=== PATIENT | female | born 1960 | race Caucasian/White ===

== ENCOUNTER 2020-04-02 16:51 | Outpatient (REF) | payer BC, SELFPAY | END 2020-04-02 17:11 | LOC: NCHCN 16:51 | PROVIDERS: Visit Provider Physician Assistant Medical | DX: R31.9 Hematuria, unspecified (principal) | CPT/HCPCS: 87077; 87086; 87186 ==

== ENCOUNTER 2020-04-19 12:09 | Outpatient (REF) | payer BC, SELFPAY ==
[2020-04-19 20:26] LABS: Anion Gap 11.2 mmol/L (3-11); BUN 18 mg/dL (7-18); CO2 24.8 mmol/L (21.0-32.0); Calcium 8.9 mg/dL (8.5-10.1); Calculated LDL 106 mg/dL (<100); Chloride 105 mmol/L (98-107); Cholesterol 187 mg/dL (<200); Glucose 104 mg/dL (74-106); HDL Cholesterol 55 mg/dL (40-60); Potassium 4.3 mmol/L (3.5-5.1); Sodium 141 mmol/L (136-145); TSH 2.23 uIU/mL (0.36-3.74); Triglyceride 133 mg/dL (<150); Vitamin B12 748 pg/mL (193-986)
== END 2020-04-19 12:29 ==
LOC: NCHCN 12:09
PROVIDERS: Visit Provider Nurse Practitioner Family
DX: Z00.00 Encounter for general adult medical examination without abnormal findings (principal); Z13.220 Encounter for screening for lipoid disorders; Z13.228 Encounter for screening for other metabolic disorders; Z13.29 Encounter for screening for other suspected endocrine disorder
CPT/HCPCS: 80048; 80061; 82607; 84443

== ENCOUNTER 2020-04-29 00:24 | Outpatient (CLI) | payer BC, SELFPAY ==
--- NOTE | 2020-04-29 09:00 | DI.CTLCSR_ITS ---
EXAM: CT CHEST LUNG CANCER SCREEN CLINICAL HISTORY: The patient reportedly has a History of Smoking 30 pack years and presently smokes or has quit the past 15 years. TECHNIQUE: Imaging Protocol: Axial computed tomography images with coronal and sagittal reformatted images were created and reviewed. Low-dose screening protocol. COMPARISON: No exams were available for comparison FINDINGS: Tracheobronchial tree: Patent where visualized. Mediastinum and Raven: No dominant adenopathy or fluid collection. Pulmonary parenchyma: No consolidation or dominant measurable mass. No significant emphysematous leigh ges or interstitial changes. Lung Nodules: None. Pleura: No effusion or pneumothorax. Heart: The heart is not dilated. coronary artery calcifications are seen. Aorta: Thoracic aorta non-dilated.Minimal calcification Upper abdomen: Unremarkable. Bones: Within normal limits. Soft Tissues: Degenerative disc changes in the spine IMPRESSION: Normal low dose CT lung screening Lung RADS Cat 1 - Negative: No nodules and definitely benign nodules Lung-RADS 1.0 CATEGORIES: Category 0 - Prior chest CT exam(s) being located for comparison. Category 1 - Annual screening in 12 months. No nodules or definitely benign nodules. Category 2 - Annual screening in 12 months. Benign appearance. Nodules with low likelihood of becomin g active cancer. Category 3 - 6-month follow-up. Probably benign. Short-term follow-up suggested. Nodules with low lik elihood of becoming active cancer. Category 4A - 3-month follow-up and CT/PET if >8 mm in size. Suspicious finding. Findings which requi re additional testing. Category 4B - Findings which require additional testing and tissue sampling. Suspicious finding. C Added to Any of the Above - History of prior lung cancer screening. S Added to Any of the Above - Significant unexpected other finding. RADIATION DOSE DELIVERED: 88.06mGy.cm Total DLP DATA REPOSITORY: All CT scans at this facility are submitted to the National Radiology Data Registry (NRDR) Dose Index Registry (DIR) with the [employer] (ACR). RADIATION OPTIMIZATION: All CT scans at this facility use at least one of these dose optimization te chniques: automated exposure control; mA and/or kV adjustment per patient size (includes targeted exa ms where dose is matched to clinical indication); or iterative reconstruction.
== END 2020-04-29 00:44 ==
PROVIDERS: Visit Provider Nurse Practitioner Family
DX: Z12.2 Encounter for screening for malignant neoplasm of respiratory organs (principal); Z87.891 Personal history of nicotine dependence
CPT/HCPCS: G0297

== ENCOUNTER 2020-12-06 15:26 | Outpatient (REF) | payer BC, SELFPAY | END 2020-12-06 15:27 | disposition home or self-care (01) | LOC: NCHCN 15:26 | PROVIDERS: Visit Provider Nurse Practitioner Family | DX: R30.0 Dysuria (principal) | CPT/HCPCS: 87086 ==

== ENCOUNTER 2021-04-08 16:19 | Outpatient (REF) | payer BC, SELFPAY ==
[2021-04-08 14:13] LABS: Anion Gap 8.1 mmol/L (3-11); BUN 17 mg/dL (7-18); CO2 28.9 mmol/L (21.0-32.0); CREATININE 0.6 mg/dL (0.55-1.02); Calcium 9.2 mg/dL (8.5-10.1); Calculated LDL 118 mg/dL (<100); Chloride 105 mmol/L (98-107); Cholesterol 208 mg/dL (<200); Glucose 113 mg/dL (74-106); HDL Cholesterol 53 mg/dL (40-60); Potassium 4.8 mmol/L (3.5-5.1); Sodium 142 mmol/L (136-145); Triglyceride 185 mg/dL (<150)
== END 2021-04-08 16:20 | disposition home or self-care (01) ==
LOC: NCHCN 16:19
PROVIDERS: Visit Provider Nurse Practitioner Family
DX: I10 Essential (primary) hypertension (principal); Z00.00 Encounter for general adult medical examination without abnormal findings
CPT/HCPCS: 80048; 80061

== ENCOUNTER 2021-06-28 01:55 | Emergency (ER) | payer BC, SELFPAY ==
[2021-06-28 02:00] VITALS: BP 145/101; PULSE 76; RESP 18; TEMP 36.5; O2SAT 97
--- NOTE | 2021-06-28 02:00 | DI.CT_ITS ---
Exam(s) CT ABDOMEN PELVIS W EXAM: CT ABDOMEN PELVIS W CLINICAL HISTORY: r and l lower quad pain, hx diverticulitis. TECHNIQUE: Imaging Protocol: Axial computed tomography images with coronal and sagittal reformatted images were created and reviewed CONTRAST MATERIAL: Intravenous: Omnipaque 350 Contrast volume:100 ml Oral: yes / no COMPARISON: No exams were available for comparison FINDINGS: ABDOMEN: Lung Bases: Normal where visualized. Liver: Enlarged. Fatty infiltration. No measurable mass. Gallbladder and biliary tract: Cholecystectomy. No radiodense calculus or dilation. Pancreas: Normal density, no abnormal calcifications or inflammatory process. Spleen: Normal. Kidneys: Normal size, contour and axis. No radiodense stones or obstructive uropathy. No masses seen. Adrenal glands: No masses seen. Abdominal Aorta: Abdominal portion non-dilated. Atherosclerotic changes. PELVIS: Bladder: Nearly empty. No gross wall thickening. No calculi.No focal mass. Bowel: Diverticulosis descending and sigmoid colon. Inflammatory changes mid to distal descending co patricia. No abscess or perforation. Appendix normal. Peritoneal cavity: No ascites, collection or mesenteric inflammatory response. Bones: Fusion hardware at L4-5. Reproductive organs: Hysterectomy Lymph nodes: Unremarkable. Impression: Uncomplicated diverticulitis mid to lower descending colon. RADIATION DOSE DELIVERED: 1,373.4mGy.cm Total DLP DATA REPOSITORY: All CT scans at this facility are submitted to the National Radiology Data Registry (NRDR) Dose Index Registry (DIR) with the [employer] (ACR). RADIATION OPTIMIZATION: All CT scans at this facility use at least one of these dose optimization te chniques: automated exposure control; mA and/or kV adjustment per patient size (includes targeted exa ms where dose is matched to clinical indication); or iterative reconstruction.
--- NOTE | 2021-06-28 02:15 | ED.GENADUL_ITS ---
Discharge Plan Disposition Patient Disposition: HOME Condition: Good Discharge Details Clinical Impression: Diverticulitis Primary Care Provider: Unknown,Unknown ED Provider: Charles Sotelo Home Meds and New Rx's Prescriptions: New ciprofloxacin HCl [Cipro] 500 mg tablet 500 mg PO BID 10 Days Qty: 20 RF: 0 metronidazole [Flagyl] 500 mg tablet 500 mg PO TID 7 Days Qty: 21 RF: 0 Continued lisinopril 20 mg Tablet 20 mg PO DAILY RF: 0 Discharge Instructions Instructions: Diverticulitis (ED) Additional Instructions: At this time you have evidence of diverticulitis. This requires antibiotic management. Please take the Cipro and Flagyl as directed. These prescriptions have been sent to your local pharmacy on file. Please stick with an easy diet of liquids and soft foods for the next few days. Take Tylenol and Motrin as needed for pain. You have been given a few pain pills to use as needed for breakthrough pain, these do have Tylenol in them so do not take any additional Tylenol when taking these pain medicines. If you notice any worsening of your symptoms, or any new symptoms such as vomiting, diarrhea, fever, chills, shortness of breath, chest pain, numbness, weakness, or fainting , please return immediately to the emergency department for reevaluation. Please follow up with your primary care provider as soon as possible for reassessment and reevaluation. As always, it was a pleasure participating in your medical care today. Medical Decision Making 61-year-old female with a past medical history of hypertension, previous diverticulitis, who presents today for abdominal pain. Patient states that she has had generalized mild lower abdominal pain for the last. 3 days, however this evening it got notably worse. She admits to intermittent diarrhea, but no blood. She denies vomiting. She denies any chest pain or shortness of breath. She denies any vaginal discharge. She denies any urinary complaints. Pain is achy in the lower abdominal quadrants, it does not radiate anywhere e lse. Worse with movement and palpation. Improved by nothing. Patient states that this feels similar to her previous diverticulitis episodes. Physical exam demonstrates tenderness in the lower abdominal quadrants. Differential includes diverticulitis versus appendicitis. UTI less likely. We will get CT scan, gently rehydrate monitor patient closely and manage her pain. 3:21 AM Laboratory work-up is returned relatively unremarkable, no white count bandemia or left shift. Lactate normal, renal function excellent. Urinalysis negative for significant infection. CT scan returned per virtual radiology with evidence of uncomplicated diverticulitis of the descending colon. Patient is feeling well. Will give IV Cipro Flagyl, with no evidence of rupture, no indication for admission at this time. Patient is requesting discharge home. Repeat abdominal exam shows no evidence of an acute surgical abdomen. Patient will be discharged following antibiotics and p.o. trial. I have extensively reviewed the treatment plan and discharge instructions with the patient. I have addressed all patient concerns at this time. The patient was made aware of what symptoms to monitor for that would warrant a return to the emergency department. Discussed the plan with the patient, they demonstrate verbal understanding and agreement with our assessment and plan at this time. The documentation in this chart was dictated using [employer] dictation software. Please excuse any dictation errors. FINDINGS: Liver: Diffuse fatty infiltration. Gallbladder and bile ducts: Cholecystectomy. Pancreas: Normal. No ductal dilation. Spleen: Normal. No splenomegaly. Adrenal glands: Normal. No mass. Kidneys and ureters: Normal. No hydronephrosis. Stomach and bowel: Mild diverticulitis of the descending colon. No obstruction. Appendix: Normal appendix. Intraperitoneal space: No free fluid, abscess or free air. Vasculature: Atherosclerosis of the abdominal aorta without aneurysm or dissection. Lymph nodes: Unremarkable. No enlarged lymph nodes. Urinary bladder: Unremarkable as visualized. Reproductive: Hysterectomy. Bones/joints: Posterior fusion at L4-L5. No acute fracture. Soft tissues: Unremarkable. IMPRESSION: Uncomplicated diverticulitis of the descending colon. Thank you for allowing us to participate in the care of your patient. Dictated and Authenticated by: Tristan Nassar MD 06/28/2021 3:13 AM Eastern Time ([place] & [place]) HPI General Date/Time Provider Initiated Documentation: 06/28/21 02:03 . HPI Narrative: 61-year-old female with a past medical history of hypertension, previous diverticulitis, who presents today for abdominal pain. Patient states that she has had generalized mild lower abdominal pain for the last. 3 days, however this evening it got notably worse. She admits to intermittent diarrhea, but no blood. She denies vomiting. She denies any chest pain or shortness of breath. She denies any vaginal discharge. She denies any urinary complaints. Pain is achy in the lower abdominal quadrants, it does not radiate anywhere else. Worse with movement and palpation. Improved by nothing. Patient states that this feels similar to her previous diverticulitis episodes. Related Data Home Medications Medication Instructions Recorded Confirmed ciprofloxacin HCl [Cipro] 500 mg PO BID 10 Days #20 tab 06/28/21 lisinopril 20 mg PO DAILY 06/28/21 06/28/21 metronidazole [Flagyl] 500 mg PO TID 7 Days #21 tab 06/28/21 Previous Rx's Medication Instructions Recorded ciprofloxacin HCl [Cipro] 500 mg PO BID 10 Days #20 tab 06/28/21 metronidazole [Flagyl] 500 mg PO TID 7 Days #21 tab 06/28/21 Allergies Allergy/AdvReac Type Severity Reaction Status Date / Time No Known Drug Allergies Allergy Unverified 06/28/21 02:12 General Stated Complaint: Abd Prob BAL: 3 Review of Systems All systems reviewed & are unremarkable except as noted in HPI and below PFSH Social History Smoking/Tobacco Use Status: Former Tobacco Use Smoking risk assessment performed?: Yes Alcohol Intake: current Alcohol Intake frequency: a few times a week Drug use: Never Substance use type: does not use Do you feel safe at home: Yes Do you feel safe in your relationship?: Yes Exam Narrative Exam Narrative: 1.Const: Well-nourished, Well-developed, appearing stated age 2.Eyes: PERRL, no conjunctival injection, and symmetrical lids. 3.ENT: Atraumatic external nose and ears. Moist MM. Neck: Symmetric, trachea midline, No thyromegaly. 4.CVS: +S1/S2, No murmurs or gallops. Peripheral pulses 2+ and equal in all extremities. Brisk capillary refill in all extremities. 5.RESP: Unlabored respiratory effort. Clear to auscultation bilaterally. No wheezes rales or rhonchi 6.GI: Soft, nondistended, no guarding or rebound. Mild tenderness in the lower abdominal quadrants bilaterally. No flank or CVA tenderness. No pain in the upper quadrants. 7.MSK: Normocephalic/Atraumatic, Extremities w/o deformity or ttp No cyanosis or clubbing, Normal movement of all extremities 8.Skin: Warm, Dry. No rashes or lesions. 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 Sensation grossly intact, no focal neurologic deficits. 10.Psych: (AAO) x3. Appropriate mood and affect Course Vital Signs Vital signs: Vital Signs Temperature 36.5 C 06/28/21 02:00 Pulse 76 06/28/21 02:00 Respiratory Rate 18 06/28/21 02:00 Blood Pressure 145/101 H 06/28/21 02:00 Pulse Oximetry 97 06/28/21 02:00 Temperature 36.5 C 06/28/21 02:00 Temperature Source Skin 06/28/21 02:00 Pulse 76 06/28/21 02:00 Respiratory Rate 18 06/28/21 02:00 Blood Pressure 145/101 H 06/28/21 02:00 Blood Pressure Position Sitting 06/28/21 02:00 Pulse Oximetry 97 06/28/21 02:00 Oxygen Delivery Method Room Air 06/28/21 02:00 Oxygen Flow Rate 0 06/28/21 02:00 Pain Level 4 06/28/21 02:00
[2021-06-28 02:27] LABS: Abs Immature Grans 0.03 10^3/uL (0.0-0.06); Absolute Basophil Count 0.03 10^3/uL (0.0-0.2); Absolute Eosinophil Count 0.17 10^3/uL (0.0-0.7); Absolute Lymphocyte Count 2.61 10^3/uL (1.2-3.4); Absolute Monocyte Count 0.87 10^3/uL (0.1-0.8); Absolute Neutrophil Count 6.14 10^3/uL (1.2-6.7); Basophils % 0.3; Eosinophils % 1.7; HCT 43.6 % (36.0-46.0); HGB 14.2 g/dL (11.2-15.7); Immature Grans % 0.3; Lactate 1.3 mmol/L (0.6-1.4); Lymphocytes % 26.5; MCH 30.8 pg (27.0-33.0); MCHC 32.6 % (32.0-36.0); MCV 94.6 fL (80-95); Monocytes % 8.8; Neutrophils % 62.4; Nucleated RBC 0 %; Platelet Count 294 10^3/uL (130-400); RBC 4.61 10^6/uL (3.93-5.22); RDW 11.9 % (11.7-14.6); RDW-SD 41.2 fL; WBC 9.85 10^3/uL (4.4-10.8)
[2021-06-28 02:31] LABS: Bilirubin Negative (Negative); Blood Trace-intact (Negative); Clarity Clear (Clear); Glucose Negative (Negative); Ketones Negative (Negative); Leukocyte Esterase Small (Negative); Nitrite Negative (Negative); Specific Gravity 1.015 (1.005-1.025); Urobilinogen 0.2 EU/dL (Up TO 0.2)
[2021-06-28 02:40] LABS: Bacteria Few HPF (Negative); Casts Negative LPF (Negative); Crystals Negative HPF (Negative); Epithelial Cells Many HPF (Negative); Mucus Negative (Negative); RBC 0-2 HPF (0-2)
[2021-06-28 02:41] LABS: C & S Indicated? No/Sq. Contamination
[2021-06-28] MEDS: Omnipaque 350 MG/ML 100 ML BTL IJ (02:41)
[2021-06-28] MEDS: Normal Saline Flush 10 ML SYR IVP (02:43)
[2021-06-28 02:44] LABS: ALT 50 U/L (14-59); AST 16 U/L (15-37); Albumin 3.7 g/dL (3.4-5.0); Alkaline Phosphatase 75 U/L (46-116); Anion Gap 7.1 mmol/L (3-11); BUN 15 mg/dL (7-18); Bilirubin, Total 0.3 mg/dL (0.2-1.0); CO2 28.9 mmol/L (21.0-32.0); CREATININE 0.8 mg/dL (0.55-1.02); Calcium 8.8 mg/dL (8.5-10.1); Chloride 105 mmol/L (98-107); Glucose 109 mg/dL (74-106); Lipase 91 U/L (73-393); Potassium 3.9 mmol/L (3.5-5.1); Sodium 141 mmol/L (136-145); Total Protein 7.3 g/dL (6.4-8.2)
[2021-06-28] MEDS: Normal Saline 1,000 ML 1000 ML IV (02:46)
[2021-06-28] MEDS: Ketorolac 15 MG/ML VIAL IVP (02:47)
--- NOTE | 2021-06-28 03:14 | DI.VRAD_ITS ---
PROCEDURE INFORMATION: Exam: CT Abdomen And Pelvis With Contrast Exam date and time: 06/28/2021 2:11 AM Age: 61 years old Clinical indication: Abdominal pain; Generalized; Prior surgery; Surgery date: 6+ months; Surgery type: Back surgery; Patient HX: R and L lower quad pain, HX diverticulitis TECHNIQUE: Imaging protocol: Computed tomography of the abdomen and pelvis with contrast. Radiation optimization: All CT scans at this facility use at least one of these dose optimization techniques: automated exposure control; mA and/or kV adjustment per patient size (includes targeted exams where dose is matched to clinical indication); or iterative reconstruction. Contrast material: OMNIPAQUE 350; Contrast volume: 100 ml; Contrast route: INTRAVENOUS (IV); COMPARISON: CT CHEST LUNG CANCER SCREEN 04/29/2020 8:55 AM FINDINGS: Liver: Diffuse fatty infiltration. Gallbladder and bile ducts: Cholecystectomy. Pancreas: Normal. No ductal dilation. Spleen: Normal. No splenomegaly. Adrenal glands: Normal. No mass. Kidneys and ureters: Normal. No hydronephrosis. Stomach and bowel: Mild diverticulitis of the descending colon. No obstruction. Appendix: Normal appendix. Intraperitoneal space: No free fluid, abscess or free air. Vasculature: Atherosclerosis of the abdominal aorta without aneurysm or dissection. Lymph nodes: Unremarkable. No enlarged lymph nodes. Urinary bladder: Unremarkable as visualized. Reproductive: Hysterectomy. Bones/joints: Posterior fusion at L4-L5. No acute fracture. Soft tissues: Unremarkable. IMPRESSION: Uncomplicated diverticulitis of the descending colon. Dictated and Authenticated by: Tristan Nassar MD. Ordering:LAN Soto MD
[2021-06-28] MEDS: metroNIDAZOLE 500 MG/100 ML BAG 100 MG IVPB (03:22)
[2021-06-28] MEDS: Ciprofloxacin 500 MG TAB PO (04:31)
[2021-06-28 04:45] VITALS: BP 158/67; PULSE 58; RESP 18; O2SAT 97
== END 2021-06-28 04:55 | disposition home or self-care (01) ==
PROVIDERS: Emergency Provider Student in an Organized Health Care Education/Training Program
DX: K57.32 Diverticulitis of large intestine without perforation or abscess without bleeding (principal)
CPT/HCPCS: 36415; 80053; 83690; 96361; 96365; 96375; 99285; 74177; 81003; 81015; 83605; 85025; 99284; J1885; J3490

== ENCOUNTER 2022-02-14 20:15 | Outpatient (REF) | payer BC, SELFPAY ==
[2022-02-14 17:05] LABS: Anion Gap 10.1 mmol/L (3-11); BUN 12 mg/dL (7-18); CO2 25.9 mmol/L (21.0-32.0); CREATININE 0.6 mg/dL (0.55-1.02); Calcium 9.2 mg/dL (8.5-10.1); Chloride 102 mmol/L (98-107); Glucose 105 mg/dL (74-106); Potassium 4.3 mmol/L (3.5-5.1); Sodium 138 mmol/L (136-145)
== END 2022-02-14 20:16 | disposition home or self-care (01) ==
LOC: LBN 20:15
PROVIDERS: Visit Provider Nurse Practitioner Family
DX: U07.1 COVID-19 (principal)
CPT/HCPCS: 80048

== ENCOUNTER 2022-05-09 19:28 | Outpatient (REF) | payer BC, SELFPAY ==
[2022-05-09 13:07] LABS: Bilirubin Negative (Negative); Blood Trace-lysed (Negative); Clarity Clear (Clear); Glucose Negative (Negative); Ketones Negative (Negative); Leukocyte Esterase Small (Negative); Nitrite Negative (Negative); Urobilinogen 0.2 EU/dL (Up TO 0.2)
[2022-05-09 13:52] LABS: Bacteria Few HPF (Negative); C & S Indicated? No/Sq. Contamination; Casts Negative LPF (Negative); Crystals Negative HPF (Negative); Epithelial Cells Moderate HPF (Negative); Mucus Negative (Negative); Other Cells Negative (Negative); WBC 20-50 HPF (0-5)
== END 2022-05-09 19:29 | disposition home or self-care (01) ==
LOC: LBN 19:28
PROVIDERS: Visit Provider Nurse Practitioner Family
DX: R39.89 Other symptoms and signs involving the genitourinary system (principal)
CPT/HCPCS: 81003; 81015

== ENCOUNTER 2022-07-06 16:57 | Outpatient (REF) | payer BC, SELFPAY ==
[2022-07-06 16:43] LABS: Calculated LDL 107 mg/dL (<100); Cholesterol 196 mg/dL (<200); HDL Cholesterol 55 mg/dL (40-60); Triglyceride 170 mg/dL (<150); Vitamin B12 442 pg/mL (193-986)
== END 2022-07-06 16:58 | disposition home or self-care (01) ==
LOC: NCHCN 16:57
PROVIDERS: Visit Provider Nurse Practitioner Family
DX: Z00.00 Encounter for general adult medical examination without abnormal findings (principal); E53.8 Deficiency of other specified B group vitamins
CPT/HCPCS: 80061; 82607

== ENCOUNTER 2023-04-18 15:16 | Outpatient (REF) | payer BC, SELFPAY ==
[2023-04-18 16:04] LABS: Bacteria Few HPF (Negative); C & S Indicated? C&S Done As Ordered; Casts Negative LPF (Negative); Crystals Negative HPF (Negative); Epithelial Cells Few HPF (Negative); Mucus Negative (Negative); RBC 0-2 HPF (0-2)
== END 2023-04-18 15:17 | disposition home or self-care (01) ==
LOC: LBN 15:16
PROVIDERS: Visit Provider Physician Assistant Medical
DX: R35.0 Frequency of micturition (principal)
CPT/HCPCS: 87077; 81015; 87086; 87186

== ENCOUNTER 2023-05-28 13:52 | Outpatient (REF) | payer BC, SELFPAY | END 2023-05-28 13:53 | disposition home or self-care (01) | LOC: NCHCN 13:52 | PROVIDERS: Visit Provider Nurse Practitioner Family | DX: R10.9 Unspecified abdominal pain (principal); R19.7 Diarrhea, unspecified; R82.79 Other abnormal findings on microbiological examination of urine | CPT/HCPCS: 87086 ==

== ENCOUNTER → 2023-05-31 10:40 | Outpatient (CLI) | payer BC, SELFPAY ==
--- NOTE | 2023-05-31 | DI.CT_ITS ---
Exam(s) CT ABDOMEN PELVIS W EXAM: CT ABDOMEN PELVIS W CLINICAL HISTORY: ABD PAIN, R10.9. TECHNIQUE: Imaging Protocol: Axial computed tomography images with coronal and sagittal reformatted images were created and reviewed CONTRAST MATERIAL: Intravenous: Omnipaque 350 Contrast volume:100 ml Oral: / no COMPARISON: CT CT ABDOMEN PELVIS W from 06/28/2021 FINDINGS: ABDOMEN: Lung Bases: Normal where visualized. Liver: Mildly enlarged. Moderate hepatic steatosis. No measurable mass. Gallbladder and biliary tract: Status post cholecystectomy. No radiodense calculus or dilation. Pancreas: Normal density, no abnormal calcifications or inflammatory process. Spleen: Normal. Kidneys: Normal size, contour and axis. No radiodense stones or obstructive uropathy. No suspicious m asses seen. Adrenal glands: No masses seen. Abdominal Aorta: Abdominal portion non-dilated. Soft tissues: Unremarkable. PELVIS: Bladder: No gross wall thickening. No calculi.No focal mass. Bowel: Diverticulosis descending and sigmoid colon. No evidence of diverticulitis. No obstruction. No bowel wall thickening. Appendix normal. Peritoneal cavity: No ascites, collection or mesenteric inflammatory response. Bones: Hardware lower lumbar spine. Degenerative changes. Mild scoliosis. Reproductive organs: Status post hysterectomy. Lymph nodes: Unremarkable. Impression: Diverticulosis. No acute abnormality in the abdomen and pelvis. RADIATION DOSE DELIVERED: 1,380.09mGy.cm Total DLP DATA REPOSITORY: All CT scans at this facility are submitted to the National Radiology Data Registry (NRDR) Dose Index Registry (DIR) with the [employer] (A[employer]). RADIATION OPTIMIZATION: All CT scans at this facility use at least one of these dose optimization te chniques: automated exposure control; mA and/or kV adjustment per patient size (includes targeted exa ms where dose is matched to clinical indication); or iterative reconstruction.
[2023-05-31] MEDS: Barium Sulfate 2% W/V-Creamy Vanilla Smoothie 450 ML BTL 900 ML PO (14:13)
[2023-05-31 14:26] LABS: CREATININE 0.7 mg/dL (0.55-1.02); Estimated GFR 97.72 (mL/min/1.73m2)
[2023-05-31] MEDS: Omnipaque 350 MG/ML 100 ML BTL IJ (16:17)
[2023-05-31] MEDS: Normal Saline - Diluent 50 ML VIAL IJ (16:20)
[2023-05-31] MEDS: Normal Saline Flush 10 ML SYR IVP (16:20)
== END ==
PROVIDERS: Visit Provider Nurse Practitioner Family
DX: K57.30 Diverticulosis of large intestine without perforation or abscess without bleeding (principal)
CPT/HCPCS: 74177; 82565; J3490

== ENCOUNTER 2023-07-17 17:52 | Outpatient (REF) | payer BC, SELFPAY | END 2023-07-17 17:53 | disposition home or self-care (01) | LOC: LBN 17:52 | PROVIDERS: Visit Provider Nurse Practitioner Family | DX: R30.0 Dysuria (principal) | CPT/HCPCS: 87077; 87086; 87186 ==

== ENCOUNTER 2025-02-24 12:05 | Outpatient (REF) | payer BC, SELFPAY ==
[2025-02-24 17:08] LABS: Abs Immature Grans 0.01 10^3/uL (0.0-0.06); Absolute Basophil Count 0.04 10^3/uL (0.0-0.2); Absolute Eosinophil Count 0.16 10^3/uL (0.0-0.7); Absolute Lymphocyte Count 1.86 10^3/uL (1.2-3.4); Absolute Monocyte Count 0.49 10^3/uL (0.1-0.8); Absolute Neutrophil Count 3.01 10^3/uL (1.2-6.7); Basophils % 0.7 %; Eosinophils % 2.9 %; HCT 42.5 % (36.0-46.0); HGB 14.3 g/dL (11.2-15.7); Immature Grans % 0.2 %; Lymphocytes % 33.4 %; MCH 30.7 pg (27.0-33.0); MCHC 33.6 % (32.0-36.0); MCV 91 fL (80-95); MPV 11.1 fL (8.0-11.0); Monocytes % 8.8 %; Platelet Count 285 10^3/uL (130-400); RBC 4.66 10^6/uL (3.93-5.22); RDW 12.2 % (11.7-14.6); RDW-SD 40.5 fL; WBC 5.57 10^3/uL (4.4-10.8)
[2025-02-24 17:32] LABS: Hemoglobin A1C 6.1 % (<5.7)
[2025-02-24 17:54] LABS: ALT 46 U/L (14-59); AST 22 U/L (15-37); Albumin 3.8 g/dL (3.4-5.0); Alkaline Phosphatase 67 U/L (46-116); Anion Gap 7.5 mmol/L (3-11); BUN 14 mg/dL (7-18); Bilirubin, Total 0.6 mg/dL (0.2-1.0); CO2 28.5 mmol/L (21.0-32.0); CREATININE 0.7 mg/dL (0.55-1.02); Calcium 9.4 mg/dL (8.5-10.1); Calculated LDL 93 mg/dL (<100); Chloride 105 mmol/L (98-107); Cholesterol 173 mg/dL (<200); Estimated GFR 96.52 (mL/min/1.73m2); Glucose 115 mg/dL (74-106); HDL Cholesterol 56 mg/dL (>or=50); Potassium 4.4 mmol/L (3.5-5.1); Sodium 141 mmol/L (136-145); Total Protein 6.7 g/dL (6.4-8.2); Triglyceride 124 mg/dL (<150); Vitamin B12 320 pg/mL (193-986)
== END 2025-02-24 12:06 | disposition home or self-care (01) ==
LOC: NCHCN 12:05
PROVIDERS: Visit Provider Physician Assistant Medical
DX: I10 Essential (primary) hypertension (principal); E53.8 Deficiency of other specified B group vitamins; K76.0 Fatty (change of) liver, not elsewhere classified; Z13.1 Encounter for screening for diabetes mellitus
CPT/HCPCS: 80053; 80061; 82607; 83036; 85025